=== PATIENT | female | born 1940 | race Caucasian/White ===

== ENCOUNTER 2019-08-23 | Emergency (ER) | payer MEDICARE, OTHER ==
[~2019-08-23] MED LIST: ARIMIDEX1 MG; ASPIRIN LOW DOS81 M1 PO; CYANOCOBAL1000 MCG/M IM; ENALAPRIL10 MG PO; FLUARIX QUADRIV1 INJ IM; FLULAVAL IM; HYDROCHLOROT25 MG PO; METOPROL TAR100 M1 PO; METOPROL TAR25 MG PO; METOPROL TAR50 MG PO; METOPROLOL TAR100 MG PO; MULTI VIT PO; RESTORIL15 MG PO; XARELTO10 MG PO; [UNRECOGNIZED DRUG - OTHER]
[2019-08-23 10:57] LABS: IMMATURE GRANULOCYTES 0.2 % (0.0-5.0); MEAN CORPUSCULAR HGB 21.4 pG CALC (26.0-32.0); MEAN CORPUSCULAR HGB CONC 27.9 g/dL CAL (32.0-36.0); NEUT# 3.59 thou/uL (2.00-7.15); RED BLOOD COUNT 3.36 mill/uL (4.20-5.60); RED CELL DISTRI WIDTH 16.6 % (11.5-15.5)
[2019-08-23 11:02] LABS: HEMATOCRIT 25.8 % (37.0-47.0); HEMOGLOBIN 7.2 g/dl (12.0-16.0); MEAN CELL VOLUME 76.8 fL CALC (80.0-100.0)
[2019-08-23 11:06] LABS: INTERNATIONAL NORMALIZED RATIO 1.2 RATIO (0.7-1.3)
[2019-08-23 11:08] LABS: ALBUMIN 3.9 g/dL (3.2-5.0); ALKALINE PHOSPHATASE 101 u/l (38-126); AMYLASE 49 u/l (30-110); BILIRUBIN, TOTAL 0.8 mg/dL (0.0-1.4); BUN 21 mg/dL (8-23); BUN/CREATININE RATIO 20 (12-20 (CALC)); CHLORIDE 108 mmol/l (95-108); CREATININE 1.1 mg/dL (0.5-1.0); GFR 48 ML/MIN (>=60 (CALC)); GFR FOR AFR.AMER. 58 ML/MIN (>=60 (CALC)); LIPASE 304 u/l (23-300); POTASSIUM 4.2 mmol/l (3.5-5.1); SGOT/AST 25 u/l (9-36); SODIUM 136 mmol/l (137-146); TOTAL PROTEIN 6.7 g/dL (6.3-8.2)
[2019-08-23 11:14] LABS: ANION GAP 12 (6-22 (CALC)); CARBON DIOXIDE 20 mmol/l (22-30)
[2019-08-23 12:00] LABS: URINE BILIRUBIN - DIPSTICK NEGATIVE (NEGATIVE); URINE BLOOD DIPSTICK SMALL (NEGATIVE); URINE COLOR YELLOW; URINE GLUCOSE - DIPSTICK NEGATIVE (NEGATIVE); URINE KETONE NEGATIVE (NEGATIVE); URINE LEUK ESTERASE NEGATIVE (NEGATIVE); URINE NITRITE - DIPSTICK NEGATIVE (Negative); URINE PH 5.5 (4.5-8.0); URINE PROTEIN - DIPSTICK NEGATIVE (NEG-TRACE); URINE UROBILINOGEN - DIPSTICK 0.2 E.U./dL (0.2)
== END 2019-08-23 14:23 | disposition short-term general hospital (02) ==
PROVIDERS: Emergency Medicine
DX: R19.5 Other fecal abnormalities (principal); D64.9 Anemia, unspecified; I10 Essential (primary) hypertension; I48.91 Unspecified atrial fibrillation; Z79.01 Long term (current) use of anticoagulants
CPT/HCPCS: Q9967